=== PATIENT | female | born 1955 | race Caucasian/White ===

== ENCOUNTER → 2017-12-04 | Outpatient (CLI) | payer MEDICAID ==
[2017-12-04 10:28] LABS: Appearance,Urine Cloudy (Clear); Bacteria,Urine Rare /hpf; Bilirubin,Urine 1+ (Negative); Blood,Urine Negative (Negative); Color,Urine Yellow; Glucose,Urine (UA) Negative (Negative); Ketones,Urine 1+ (Negative); Leukocyte Esterase,Urine Negative (Negative); Mucus,Urine Few /hpf; Nitrite,Urine Negative (Negative); PH, Urine 5.5 (5.0-8.0); Protein,Urine 1+ (Negative); RBC,Urine 1 /hpf (0-5); Squamous Epithelial Cell,Urine 13 /hpf (0-4); WBC,Urine 1 /hpf (0-5)
[2017-12-04 10:47] LABS: Basophils # (A) 0.1 k/uL (0-0.2); Basophils % (A) 1 %; Eosinophils # (A) 0.2 k/uL (0-0.7); Eosinophils % (A) 2 %; HCT 42.1 % (34.0-46.0); HGB 14.7 gm/dL (11.4-16.0); Lymphocytes # (A) 2.2 k/uL (1.0-4.8); Lymphocytes % (A) 38 %; MCH 28.8 pg (25.0-35.0); MCHC 34.8 g/dL (31.0-37.0); MCV 82.9 fL (80.0-100.0); Mean Platelet Volume 7.4; Monocytes # (A) 0.3 k/uL (0-1.0); Monocytes % (A) 5 %; Neutrophils # (A) 3.1 k/uL (1.3-7.7); Neutrophils % (A) 52 %; Platelet Count 307 k/uL (150-450); RBC 5.08 m/uL (3.80-5.40); RDW 12.7 % (11.5-15.5); WBC 5.9 k/uL (3.8-10.6)
[2017-12-04 11:50] LABS: ALT 21 U/L (9-52); AST 20 U/L (14-36); Albumin 4.5 g/dL (3.5-5.0); Alkaline Phosphatase 71 U/L (38-126); Anion Gap 12 mmol/L; Blood Urea Nitrogen 28 mg/dL (7-17); C Reactive Protein 9.2 mg/L (<10.0); Calcium 10.3 mg/dL (8.4-10.2); Carbon Dioxide 29 mmol/L (22-30); Chloride 106 mmol/L (98-107); Cholesterol 152 mg/dL (<200); Glucose 106 mg/dL (74-99); HDL Cholesterol 55 mg/dL (40-60); LDL Cholesterol,Calculated 82 mg/dL (0-99); Potassium 4.7 mmol/L (3.5-5.1); Sodium 147 mmol/L (137-145); Total Bilirubin 1.3 mg/dL (0.2-1.3); Total Protein 7.4 g/dL (6.3-8.2); Triglycerides 73 mg/dL (<150)
[2017-12-04 12:58] LABS: Erythrocyte Sedimentation Rate 9 mm/hr (0-20)
[2017-12-04 17:33] LABS: Rheumatoid Factor 6 IU/mL (0-15)
== END ==
LOC: LABWHC1 09:51
PROVIDERS: ATTEND Internal Medicine
DX: Z00.00 Encounter for general adult medical examination without abnormal findings (principal); E78.5 Hyperlipidemia, unspecified; K21.9 Gastro-esophageal reflux disease without esophagitis; M19.90 Unspecified osteoarthritis, unspecified site; M12.9 Arthropathy, unspecified; Z86.711 Personal history of pulmonary embolism
CPT/HCPCS: 36415; 80053; 80061; 81001; 84443; 85025; 85652; 86038; 86140; 86431

== ENCOUNTER → 2017-12-15 | Outpatient (CLI) | payer BC ==
[2017-12-15 14:51] LABS: Anion Gap 12 mmol/L; Blood Urea Nitrogen 32 mg/dL (7-17); Calcium 10.4 mg/dL (8.4-10.2); Carbon Dioxide 26 mmol/L (22-30); Chloride 104 mmol/L (98-107); Glucose 91 mg/dL (74-99); Potassium 4.9 mmol/L (3.5-5.1); Sodium 142 mmol/L (137-145)
--- NOTE | 2017-12-18 09:15 | MM ---
Reason for exam: screening (asymptomatic). Last mammogram was performed 3 years ago. History: Patient is postmenopausal. Family history of breast cancer in grandmother. Physical Findings: A clinical breast exam by your physician is recommended on an annual basis and results should be correlated with mammographic findings. MG 3D Screening Mammo W/Cad Bilateral CC and MLO view(s) were taken. Prior study comparison: December 26, 2014, bilateral MG screening mammo w CAD. May 14, 2012, bilateral digital screening mammo w/CAD. There are scattered fibroglandular densities. Finding: There are typically benign round calcifications in both breasts. There is no discrete abnormality. ASSESSMENT: Benign, BI-RAD 2 RECOMMENDATION: Routine screening mammogram of both breasts in 1 year.
== END | disposition home or self-care (01) ==
LOC: RADMAMWWP 13:55
PROVIDERS: ATTEND Internal Medicine
DX: Z12.31 Encounter for screening mammogram for malignant neoplasm of breast (principal); E83.52 Hypercalcemia
CPT/HCPCS: 77063; 77067; 80048

== ENCOUNTER → 2019-06-28 | Outpatient (CLI) | payer MEDICAID ==
[~2019-06-28] MED LIST: REGADENOSON 0.4 MG/5 ML SYRINGE IV ONE
--- NOTE | 2019-06-28 11:12 | NM ---
EXAMINATION TYPE: NM stress lexiscan cardiolite DATE OF EXAM: 06/28/2019 COMPARISON: NONE HISTORY: Chest pain TECHNIQUE: After the intravenous administration of 10.23 mCi Tc 99m Sestamibi - Cardiolite resting S PECT images acquired 45 minutes post injection. The patient received 0.4mg Lexiscan, 25.4 mCi Tc 99m Sestamibi - Stress images obtained [address] injection FINDINGS: Review of stress and rest SPECT images demonstrates small focal area of reversibility involving the a nterior and apical portion myocardium.. Gated analysis shows normal wall motion with an estimated le ft ventricular ejection fraction of 76 %. IMPRESSION: 1. Small focal area of stress-induced reversibility involving the anterior wall and apical portion of the myocardium. This may be artifactual correlate clinically and with EKG to exclude stress-induced reversible ischemia.
--- NOTE | 2019-06-28 14:56 | EST ---
EXERCISE STRESS AGE: 63 SEX: Female HT: 68" WT: 258# PROTOCOL: Lexiscan Cardiolite STAGE: DURATION OF EXERCISE: HEART RATE REST: 80 BLOOD PRESSURE REST: 115/75 MAXIMUM HEART RATE ACHIEVED: 106 MAXIMUM BLOOD PRESSURE: 125/71 85% MPHR: 133 100% MPHR: 157 METS: INDICATIONS: Preoperative. CLINICAL INFORMATION: Lexiscan nuclear study was performed. Resting heart rate is 80 beats per minute. Peak heart rate of 94 beats per minute was noted. Resting blood pressure is 115/75 mmHg. At the peak Lexiscan infusion, maximum blood pressure of 125/71 mmHg was noted. Resting EKG shows normal sinus rhythm with normal IN interval and QRS duration and normal ST-T waves. No ST-segment depression suggestive of ischemia is noted. The results of the nuclear study will follow. BRUNOL / IJN: [id number] /
== END | disposition home or self-care (01) ==
LOC: RADNMMAIN 07:48
PROVIDERS: ATTEND Internal Medicine
DX: Z01.810 Encounter for preprocedural cardiovascular examination (principal)
CPT/HCPCS: 93017; 78452; A9500; J2785

== ENCOUNTER → 2019-07-01 | Outpatient (CLI) | payer MEDICAID ==
[2019-07-01 18:55] LABS: Vitamin D 25 Hydroxy 30.1 ng/mL (30.0-100.0)
[2019-07-01 19:48] LABS: African American GFR (CKD) 106.9 (60.0-200.0); Albumin 4.4 g/dL (3.80-4.90); Albumin/Globulin Ratio 2.32 (1.60-3.17); Anion Gap 11.3 mmol/L (4.00-12.00); BUN/Creat Ratio 41.43 Ratio (12.00-20.00); Calcium 9.1 mg/dL (8.7-10.3); Carbon Dioxide 23.7 mmol/L (21.6-31.8); Chol/HDL Ratio 2.71; Globulin 1.9 g/dL (1.6-3.3); Potassium 4.6 mmol/L (3.5-5.5); Total Bilirubin 0.9 mg/dL (0.3-1.2); Total Protein 6.3 g/dL (6.2-8.2)
== END | disposition home or self-care (01) ==
LOC: LABWHC1 10:03
PROVIDERS: ATTEND Internal Medicine
DX: Z00.00 Encounter for general adult medical examination without abnormal findings (principal); E78.5 Hyperlipidemia, unspecified; K21.9 Gastro-esophageal reflux disease without esophagitis; M17.11 Unilateral primary osteoarthritis, right knee; E55.9 Vitamin D deficiency, unspecified; E53.8 Deficiency of other specified B group vitamins; Z86.711 Personal history of pulmonary embolism
CPT/HCPCS: 36415; 80053; 80061; 82306; 82607; 84443

== ENCOUNTER → 2019-07-11 | Outpatient (CLI) | payer MEDICAID | END | disposition home or self-care (01) | LOC: LABPAT 16:02 | PROVIDERS: ATTEND Orthopaedic Surgery | DX: Z01.812 Encounter for preprocedural laboratory examination (principal) | CPT/HCPCS: 87070 ==

== ENCOUNTER → 2019-07-25 | Outpatient (CLI) | payer MEDICAID ==
[2019-07-25 11:23] LABS: African American GFR (CKD) >90 (>60 ml/min/1.73 sqM); Anion Gap 6 mmol/L; Blood Urea Nitrogen 27 mg/dL (7-17); Carbon Dioxide 31 mmol/L (22-30); Chloride 103 mmol/L (98-107); Non-African American GFR(CKD) >90 (>60 ml/min/1.73 sqM); Potassium 4.6 mmol/L (3.5-5.1); Sodium 140 mmol/L (137-145)
[2019-07-25 11:33] LABS: HCT 41.6 % (34.0-46.0); HGB 14.3 gm/dL (11.4-16.0); MCHC 34.3 g/dL (31.0-37.0); MCV 87.4 fL (80.0-100.0); Mean Platelet Volume 6.5; Platelet Count 298 k/uL (150-450); RBC 4.76 m/uL (3.80-5.40); RDW 13.1 % (11.5-15.5); WBC 6.3 k/uL (3.8-10.6)
== END | disposition home or self-care (01) ==
LOC: LABPAT 10:05
PROVIDERS: ATTEND Internal Medicine Interventional Cardiology
DX: Z01.812 Encounter for preprocedural laboratory examination (principal); R94.39 Abnormal result of other cardiovascular function study
CPT/HCPCS: 36415; 80051; 82565; 84520; 85027

== ENCOUNTER 2019-07-31 06:29 | Day surgery (SDC) | payer MEDICAID ==
[2019-07-29 12:02] VITALS: BMI 37.7
[2019-07-31] MEDS ORDERED: ALPRAZolam 0.25 MG TAB PO PRN (06:34)
[2019-07-31] MEDS ORDERED: NITROGLYCERIN SL TABS 0.4 MG TAB SUBLINGUAL PRN (06:34)
[2019-07-31] MEDS ORDERED: SODIUM CHLORIDE 0.9% 1,000 ML in EMPTY BAG 1 BAG IV ONE (06:34)
[2019-07-31] MEDS ORDERED: ALPRAZolam 0.5 MG TAB PO PRN (06:34)
[2019-07-31] MEDS ORDERED: ASPIRIN 325 MG TAB PO STA (06:34)
[2019-07-31] MEDS ORDERED: ATORVASTATIN 80 MG TAB PO STA (06:34)
[2019-07-31 07:03] VITALS: TEMP 98
[2019-07-31] MEDS ORDERED: fentaNYL (PF) 50 MCG/ML 2 ML AMP ONE (07:26)
[2019-07-31] MEDS ORDERED: HEPARIN SODIUM 1,000 UN/ML (10ML VL) ONE (07:26)
[2019-07-31] MEDS ORDERED: LIDOCAINE 1% INJ 10MG/ML (20 ML MDV) ONE (07:26)
[2019-07-31] MEDS ORDERED: VERAPAMIL 2.5 MG/ML 2 ML AMP ONE (07:26)
[2019-07-31] MEDS ORDERED: fentaNYL (PF) 50 MCG/ML 2 ML AMP IVP ONE (07:36)
[2019-07-31] MEDS ORDERED: LIDOCAINE 1% INJ 10MG/ML (20 ML MDV) SQ ONE (07:40)
[2019-07-31] MEDS ORDERED: VERAPAMIL SYRINGE (5 MG/10 ML) INTRAARTER ONE (07:45)
[2019-07-31] MEDS ORDERED: HEPARIN SODIUM 1,000 UN/ML (10ML VL) IV ONE (07:50)
[2019-07-31] MEDS ORDERED: IOPAMIDOL-370 125ML BTL INJ ONE (08:02)
[2019-07-31] MEDS ORDERED: RX INFO: IV CONTRAST WAS GIVEN 1 EACH MISC MISCELLANE PRN (08:11)
[2019-07-31] MEDS ORDERED: SODIUM CHLORIDE 0.9% 1,000 ML IV SCH (08:15)
[2019-07-31 08:39] VITALS: RESP 18
[2019-07-31] MEDS ORDERED: CYCLOBENZAPRINE 10 MG TAB PO SCH (09:00)
[2019-07-31] MEDS ORDERED: NON FORMULARY DRUG (Simvastatin [Simvastatin] 40 MG) PO SCH (09:00)
[2019-07-31] MEDS ORDERED: NON FORMULARY DRUG (Omeprazole [Omeprazole] 20 MG) PO SCH (09:00)
[2019-07-31] MEDS ORDERED: NON FORMULARY DRUG (Cyanocobalamin (Vitamin B-12) [Vitamin B-12] 1,000 MCG) PO SCH (09:00)
[2019-07-31 09:02] VITALS: BP 144/94; PULSE 76
--- NOTE | 2019-07-31 09:08 | CC ---
CARDIAC CATHETERIZATION REPORT Mrs. Lunsford is a 63-year-old female known with known history of hyperlipidemia, who presented with symptoms of chest discomfort. She was scheduled to undergo a total knee arthroplasty and underwent a myocardial perfusion imaging that revealed evidence of inducible ischemia involving the anterior wall. In view of that, recommendation was made regarding cardiac catheterization. The procedure as well as the risks and the complications were discussed with the patient who is in full understanding and agreement. PROCEDURE: Patient was brought to the laborer tan house in a fasting semi-sedated state after receiving fentanyl and Benadryl and achieving moderate conscious sedated state. Using Xylocaine anesthesia and Seldinger technique, a 6-Swazi sheath was introduced in the right radial artery. Selective right and left coronary angiography was performed using 5- Swazi 3.5 bend right and left Norah catheter. Multiple views of the coronary artery including hemiaxial views were obtained. Following that, 5-Swazi tight pigtail catheter was introduced in the left ventricle and a 30-degree STOVER view of the left ventricle was obtained. Following that, catheter and sheath were removed. Hemostasis was obtained with deployment of a TR band. There was no immediate complication. Patient was returned to her room in stable condition. Of note, the patient received 5000 units of intravenous heparin as well as intra-arterial verapamil. FINDINGS: LEFT MAIN: This is a short size vessel bifurcating left circumflex, left anterior descending artery. Left main coronary artery has no evidence of high-grade stenosis. LEFT ANTERIOR DESCENDING ARTERY: This is a large sized vessel reaching toward the apex with a wraparound apex segment giving rise to a moderately sized diagonal branch in mid segment. The left anterior descending artery as well as branches have no evidence of obstructive coronary artery disease. LEFT CIRCUMFLEX: This is a nondominant vessel, large in caliber, giving rise to a large obtuse marginal branch. The left circumflex as well as branches have no evidence of obstructive coronary artery disease. RIGHT CORONARY ARTERY: This is a large dominant vessel bifurcating in PDA and posterolateral segment and branches the PLV reaches to the inferoapical lateral wall. The right coronary artery as well as branches have no evidence of obstructive coronary artery disease. LEFT VENTRICULOGRAM: Left ventriculogram was performed in 30-degree STOVER view and revealed normal left ventricular size and systolic function. Ejection fraction is 60%. There was no significant mitral regurgitation. HEMODYNAMICS: There was no gradient across the aortic valve. The left ventricular end- diastolic pressure was 20 mmHg. CONCLUSION: 1. Normal coronary arteries. 2. Normal left ventricular size and systolic function. RECOMMENDATION: In view of finding anatomy, recommend to continue medical therapy with aggressive coronary risk modifications that have been initiated. Those findings and recommendation were discussed with the patient and her family and in full understanding and agreement. Duration of procedure is 21 minutes. LIEN / TRAMN: [id number] /
--- NOTE | 2019-07-31 09:14 | LTR ---
July 31, 2019 Re: Anna Lunsford Dear Dr. Alanis: I had the opportunity to perform cardiac catheterization on Mrs. Lunsford at [facility] on the 31 of July and a full copy of the procedure note will be forwarded to you. In brief, she was found to have no evidence of obstructive coronary artery disease with preserved left ventricular size and systolic function. Based on those findings, I recommended to continue medical therapy with aggressive coronary risks modifications that has been initiated. Thank you again for allowing me the opportunity to participate in her care. Please feel free to call for any questions. Sincerely yours, MD BRUNO CampbellL / TRAMN: [id number] /
== END 2019-07-31 13:05 | disposition home or self-care (01) ==
LOC: CATHCVL 06:29
PROVIDERS: ATTEND Internal Medicine Interventional Cardiology
DX: R94.39 Abnormal result of other cardiovascular function study (principal); I10 Essential (primary) hypertension; E78.5 Hyperlipidemia, unspecified; Z82.49 Family history of ischemic heart disease and other diseases of the circulatory system; Z86.718 Personal history of other venous thrombosis and embolism; Z86.711 Personal history of pulmonary embolism; Z79.01 Long term (current) use of anticoagulants; Z79.82 Long term (current) use of aspirin; Z79.899 Other long term (current) drug therapy; Z88.1 Allergy status to other antibiotic agents; Z88.5 Allergy status to narcotic agent; Z88.8 Allergy status to other drugs, medicaments and biological substances
CPT/HCPCS: 93458; C1769; J2001; J3010; J1644; Q9967

== ENCOUNTER → 2019-08-15 | Outpatient (CLI) | payer MEDICAID ==
[2019-08-15 08:32] LABS: Basophils # (A) 0.1 k/uL (0-0.2); Basophils % (A) 1 %; Eosinophils # (A) 0.3 k/uL (0-0.7); Eosinophils % (A) 5 %; HCT 38.9 % (34.0-46.0); HGB 12.9 gm/dL (11.4-16.0); Lymphocytes # (A) 2.4 k/uL (1.0-4.8); Lymphocytes % (A) 40 %; MCH 29.1 pg (25.0-35.0); MCHC 33.2 g/dL (31.0-37.0); MCV 87.5 fL (80.0-100.0); Mean Platelet Volume 6.3; Monocytes # (A) 0.3 k/uL (0-1.0); Monocytes % (A) 4 %; Neutrophils % (A) 49 %; Platelet Count 313 k/uL (150-450); RBC 4.45 m/uL (3.80-5.40); RDW 12.9 % (11.5-15.5)
[2019-08-15 08:49] LABS: Potassium 4.7 mmol/L (3.5-5.1)
[2019-08-15 09:56] LABS: INR 0.9 (<1.2); Prothrombin Time 9.6 sec (9.0-12.0)
== END | disposition home or self-care (01) ==
LOC: LABPAT 08:02
PROVIDERS: ATTEND Orthopaedic Surgery
DX: Z01.812 Encounter for preprocedural laboratory examination (principal); M17.11 Unilateral primary osteoarthritis, right knee; Z51.81 Encounter for therapeutic drug level monitoring
CPT/HCPCS: 36415; 80051; 85025; 85610

== ENCOUNTER 2019-09-09 05:57 | Inpatient (IN) | payer MEDICAID ==
[2019-09-05 12:52] VITALS: BMI 39.2
--- NOTE | 2019-09-08 16:20 | HP ---
HISTORY AND PHYSICAL REASON FOR ADMISSION: Surgery 09/09/2019 HISTORY OF PRESENT ILLNESS: Anna Lunsford is a 64-year-old patient seen with symptomatic right knee osteoarthritis. We discussed options for treatment. She elected to proceed with right total knee arthroplasty. Consent was obtained. Medical clearance was provided by Tracy Escalante. Cardiac clearance was provided by Dr. Perea. PAST MEDICAL HISTORY: Hyperlipidemia, gastroesophageal reflux disease. PAST SURGICAL HISTORY: Left foot surgery, hysterectomy, right knee arthroscopy. MEDS: Flexeril, omeprazole, simvastatin. ALLERGIES: TETRACYCLINES, ERYTHROMYCIN, MORPHINE, BENADRYL. SOCIAL HISTORY: Noncontributory. PHYSICAL EXAMINATION: Evaluation of the right knee: Range of motion is -3/4-115. Tenderness medial joint line. Crepitus medial patellofemoral compartments with range of motion. Pain with patellofemoral compression. Ligaments are stable. Hip rotation without pain. Distal neurovascular exam is intact. RADIOGRAPHS: Radiographs of the right knee reveal severe osteoarthritic changes. IMPRESSION: 1. Right knee osteoarthritis. 2. Hyperlipidemia. 3. Gastroesophageal reflux disease. PLAN: Right total knee arthroplasty. Surgery 09/09/2019. MMODL / IJN: [id number] /
[~2019-09-09 05:57] MED LIST changes: +ACETAMINOPHEN TAB 500 MG TAB PO ONE; +LIDOCAINE 1% 20 ML VIAL (10MG/ML) FOR IV START INTRADERMA PRN; +MELOXICAM 7.5 MG TAB PO ONE; +ONDANSETRON 4 MG/2 ML VIAL IVP ONE; -REGADENOSON 0.4 MG/5 ML SYRINGE IV ONE; +TRANEXAMIC ACID 1,000 MG in SODIUM CHLORIDE 0.9% 100 ML IVPB ONE; +fentaNYL (PF) 50 MCG/ML 2 ML AMP IV PRN
[2019-09-09] MEDS ORDERED: ROPIVACAINE 246.25 MG, EPINEPHrine 0.5 MG, KETOROLAC 30 MG, cloNIDine HCL/PF 80 MCG, WA... MISCELLANE ONE ×5 (06:00)
[2019-09-09] MEDS: LACTATED RINGERS 1,000 ML IV SCH ×3 (06:30→21:52)
[2019-09-09] MEDS ORDERED: DEXAMETHASONE SOD PHOSPHATE 10 MG/ML 1 ML VIAL IV ONE (06:30)
[2019-09-09] MEDS ORDERED: MIDAZOLAM 2 MG/2 ML VIAL IV ONE ×2 (07:10→07:30)
[2019-09-09] MEDS ORDERED: SODIUM CHLORIDE 0.9% 100 ML BAG ONE (07:29)
[2019-09-09] MEDS ORDERED: PHENYLEPHRINE-0.9% NACL SYG 1 MG/10 ML SYRINGE ONE (07:29)
[2019-09-09] MEDS ORDERED: TRANEXAMIC ACID 1,000 MG/10 ML VIAL ONE (07:29)
[2019-09-09] MEDS ORDERED: PROPOFOL 10 MG/ML 20 ML VIAL IV ONE (07:29)
[2019-09-09] MEDS ORDERED: MIDAZOLAM 2 MG/2 ML VIAL ONE (07:29)
[2019-09-09] MEDS ORDERED: fentaNYL (PF) 50 MCG/ML 2 ML AMP ONE (07:29)
[2019-09-09] MEDS ORDERED: ROPIVACAINE 0.2%-NS ON-Q PUMP 1,090 MG, EMPTY PAIN BALL 1 EACH MISCELLANE PRN (08:04)
--- NOTE | 2019-09-09 08:04 | P.ANPRN ---
Procedure Note - Anesthesia - Nerve Block Performed Left Adductor Canal Infusion Time Out Performed: Yes Date of Procedure: 09/09/19 Procedure Start Time: :10 Procedure Stop Time: :21 Location of Patient: PreOp Indication: Acute Post-Operative Pain, Requested by Surgeon Specifically requested for management of pain by DrRashad: Gus Moore Sedation Type: Sedate with meaningful contact maintained Preparation: Sterile Prep Position: Supine Catheter: Indwelling Needle Types: Pajunk Needle Gauge: 18 Ultrasound used to visualize needle placement: Yes Ultrasound used to observe medication spread: Yes Injectate: 0.5% Ropivacaine (see comment for volume) (20 cc) Blood Aspirated: No Pain Paresthesia on Injection Noted: No Resistance on Injection: Normal Image Stored and Saved: Yes Events: Uneventful and Well Tolerated
[2019-09-09] MEDS ORDERED: ceFAZolin 3,000 MG in SODIUM CHLORIDE 0.9% IRRIGATIO 3,000 ML IRRIGATION ONE (08:07)
[2019-09-09] MEDS ORDERED: LACTATED RINGERS 1,000 ML IV ONE (08:10)
[2019-09-09] MEDS ORDERED: NALOXONE 0.4 MG/ML 1 ML VIAL IV PRN (09:26)
[2019-09-09] MEDS ORDERED: HYDROmorphone 1 MG/ML 1 ML SYRINGE IVP PRN (09:26)
[2019-09-09] MEDS ORDERED: HYDROmorphone 0.5 MG/0.5 ML SYRINGE IVP PRN ×2 (09:26)
[2019-09-09] MEDS ORDERED: ONDANSETRON 4 MG/2 ML VIAL IVP PRN (09:26)
[2019-09-09] MEDS ORDERED: HYDROcodone/APAP 5-325MG 1 EACH TAB PO PRN (09:26)
--- NOTE | 2019-09-09 09:26 | P.OP ---
Date of Procedure: 09/09/19 Preoperative Diagnosis: Right knee osteoarthritis Postoperative Diagnosis: Right knee osteoarthritis Procedure(s) Performed: Right total knee arthroplasty Implants: 1. Microport evolution size 5 right cemented femur 2. Microport evolution size 5 right cemented tibial baseplate 3. Microport evolution size 5 right CS 12 mm polyethylene tibial insert 4. Microport advance 35 mm all polyethylene cemented patella Anesthesia: regional (Adductor canal catheter), local, spinal Surgeon: Gus Moore Camera Supervisor #1: Vignesh Berger Estimated Blood Loss (ml): 40 Pathology: other (Bone) Condition: stable Disposition: PACU Indications for Procedure: 64-year-old patient seen with symptomatic right knee osteoarthritis. After treatment options were discussed, she elected to proceed with total knee arthroplasty. Operative Findings: See description of procedure Description of Procedure: Patient was taken to the operative suite after having an adductor canal catheter placed by the department of anesthesia for postoperative pain management. Patient underwent a spinal anesthetic by the department of anesthesia. Patient was given preoperative IV intake antibiotics and TXA. A well-padded tourniquet was placed about the right lower extremity. The lower extremity was then prepped and draped in the normal sterile orthopedic fashion. The extremity was elevated, a tourniquet was insufflated to 300. A standard anterior incision was made sharply through skin. Dissection was taken down through the subcutaneous soft tissues down to the extensor mechanism. A medial arthrotomy was performed, patella was everted and knee was flexed. There was advanced osteoarthritis noted. I introduced my distal intramedullary femoral drill. I then introduced the distal femoral cutting jig. Roel WILLIAMSON secured the cutting jig with 2 pins. I held retractors in position while Roel WILLIAMSON performed the distal femoral resection through the guide area we now removed her distal femoral cutting guide. We now placed our 4-in-1 femoral cutting block and positioned and it was secured with 2 pins by Roel WILLIAMSON while I held the block in position. The distal femoral finishing was now completed. A proximal tibial cutting guide was positioned. I held the guide in the appropriate position with both hands well Roel WILLIAMSON inserted stabilizing pins into the guide. Proximal tibial cut was made. We now placed a trial femoral component into position, along with an appropriate size tibial tray and insert. We now took the knee through range of motion and had full extension good flexion and good overall soft tissue balance noted. The patella was everted and stabilized with 2 towel clips held by Roel WILLIAMSON while I performed a flush with patellar quad tendon utilizing a fresh sawblade. We templated the patella, appropriate drill holes were made. An appropriate trial patella was positioned, knee was taken through full range of motion with the patella tracking very nicely. The trial patella was removed. Drill holes were made through the femoral component. All trial components were removed after marking off the appropriate rotation of the tibia. Retractors were now positioned along the proximal tibia. An appropriate keel punch was made with the appropriate size tibial guide by myself on Roel WILLIAMSON assisted by holding retractors. At this point appropriate size implants were chosen and opened. The joint was irrigated copiously with pulse lavage mechanical irrigation. The posterior capsule was infiltrated with local analgesic. The wound was irrigated with pulse lavage mechanical irrigation. We mixed antibiotic methylmethacrylate. We placed the knee into flexion. We placed multiple retractors assisted by Roel WILLIAMSON to expose the proximal tibia. Once the methyl methacrylate was ready, the tibial component was cemented into place removing any excess methylmethacrylate form by both myself and Roel WILLIAMSON. The femoral component was cemented into place removing the removing any excess methylmethacrylate performed by both myself and Roel WILLIAMSON. We then inserted the appropriate size polyethylene tibial insert. We made sure that it was locked into position. We took the knee into full extension, and then back in a flexion making sure we had removed any excess methylmethacrylate. The patellar component was then cemented down and secured with clamp. Excess methylmethacrylate removed. We kept the knee in full extension, patellar clamp in position until methylmethacrylate had hardened. Once it had hardened the patellar clamp was removed. The knee was taken through full range of motion. The patella tracked nicely. There was good soft tissue balancing. The tourniquet was now released. Additional hemostasis was achieved via electrocautery. A second gram of TXA was given. The wound again was irrigated with pulse lavage mechanical irrigation. The superficial soft tissues were infiltrated local analgesic. The extensor mechanism was repaired with Vicryl. We checked the repair with range of motion and it was stable. The subcutaneous soft tissues were repaired with Vicryl in layers. The skin was approximated with pernio/Dermabond. Sterile dressings were applied followed by loose web roll and Galo bandage. The patient was transferred to a bed, and taken to recovery in stable and satisfactory condition. Roel WILLIAMSON assisted with this complex procedure.
[2019-09-09] MEDS: HYDROmorphone 1 MG/ML 1 ML SYRINGE IVP ONE ×2 (10:10→10:15)
--- NOTE | 2019-09-09 10:12 | XR ---
EXAMINATION TYPE: XR knee limited RT DATE OF EXAM: 09/09/2019 CLINICAL HISTORY: Right knee pain and arthritis status post total knee replacement. TECHNIQUE: Portable AP and crosstable lateral views of the right knee are obtained immediately posto peratively. COMPARISON: None FINDINGS: Metallic hardware from total right knee arthroplasty is seen and appears satisfactory in a lignment and position. There is evidence of recent surgery with diffuse subcutaneous gas and soft ti ssue swelling noted. IMPRESSION: METALLIC HARDWARE FROM TOTAL RIGHT KNEE ARTHROPLASTY IS SATISFACTORY IN ALIGNMENT.
[2019-09-09] MEDS: HYDROcodone/APAP 5-325MG 1 EACH TAB PO PRN ×2 (12:58→20:23)
--- NOTE | 2019-09-09 18:53 | P.CONS ---
History of Present Illness - Reason for Consult Consult date: 09/09/19 consult for medical management of GERD and hyperlipidemia Requesting physician: Gus Moore - Chief Complaint consult for medical management of GERD and hyperlipidemia - History of Present Illness The patient is a morbidly obese female with past focal history of GERD and dyslipidemia who is currently admitted and is postop after having a right total knee arthroplasty secondary to history of severe right knee osteoarthritis. the patient denies any chest pain or shortness of breath or nausea or vomiting. Reports pain is well controlled at this time. Review of records indicates that the patient had an abnormal stress test and subsequent normal left heart catheterization in July of this year Review of Systems pertinent positives as per HPI all other review of systems is otherwise negative Past Medical History Past Medical History: Deep Vein Thrombosis (DVT), Osteoarthritis (OA) Additional Past Medical History / Comment(s): Hx DVT in right leg, bilateral PE in 2004 after right knee arthroscopy. History of Any Multi-Drug Resistant Organisms: None Reported Past Surgical History: Heart Catheterization, Hysterectomy, Orthopedic Surgery Additional Past Surgical History / Comment(s): Right knee arthroscopy, bunion surgery bilateral feet, recent heart cath jul 31, TRK aug 2019 Past Anesthesia/Blood Transfusion Reactions: No Reported Reaction Past Psychological History: No Psychological Hx Reported Smoking Status: Never smoker Past Alcohol Use History: None Reported Past Drug Use History: None Reported - Past Family History Sister(s) Family Medical History: Cancer Additional Family Medical History / Comment(s): Tongue cancer. Medications and Allergies Home Medications Medication Instructions Recorded Confirmed Type Cyanocobalamin (Vitamin B-12) 1,000 mcg PO DAILY 07/29/19 09/05/19 History [Vitamin B-12] Cyclobenzaprine [Flexeril] 10 mg PO TID 07/29/19 09/05/19 History Ibuprofen 800 mg PO TID 07/29/19 09/05/19 History Omeprazole 20 mg PO DAILY 07/29/19 09/05/19 History Simvastatin 40 mg PO DAILY 07/29/19 09/05/19 History Allergies Allergy/AdvReac Type Severity Reaction Status Date / Time azithromycin Allergy Rash/Hives Verified 09/09/19 11:18 diphenhydramine Allergy Rash/Hives Verified 09/09/19 11:18 [From Benadryl] morphine Allergy Swelling Verified 09/09/19 11:18 Tetracyclines Allergy Rash/Hives Verified 09/09/19 11:18 Physical Exam Vitals: Vital Signs Temp Pulse Pulse Pulse Resp BP Pulse Ox 09/09/19 13:11 94 106/72 96 09/09/19 12:57 95 113/65 96 09/09/19 12:41 93 130/81 96 09/09/19 12:26 87 112/77 97 09/09/19 12:11 88 117/80 96 09/09/19 11:56 88 111/78 96 09/09/19 11:42 90 117/74 98 09/09/19 11:26 91 122/81 95 09/09/19 11:11 97.9 F 93 18 107/72 95 09/09/19 10:31 94 18 133/71 95 09/09/19 10:16 94 18 130/74 93 L 09/09/19 10:01 94 18 127/65 95 09/09/19 09:46 96 18 117/61 97 09/09/19 09:35 97.1 F L 96 14 119/64 97 09/09/19 06:30 97.0 F L 110 H 16 148/79 97 Intake and Output 09/08/19 09/09/19 09/09/19 22:59 06:59 14:59 Intake Total 300 1351 Output Total 40 Balance 300 1311 Intake: IV 300 1251 Oral 100 Output: Estimated Blood Loss 40 Other: Weight 117 kg 117 kg Constitutional: No acute distress, conversant, pleasant Eyes: Anicteric sclerae, moist conjunctiva, no lid-lag, PERRLA ENMT: NC/AT,Oropharynx clear, no erythema, exudates Neck:Supple, FROM, no masses, or JVD, No carotid bruits; No thyromegaly Lungs: Clear to auscultation, Clear to percussion, Normal respiratory effort, no accessory muscle use Cardiovascular: Heart regular in rate and rhythm, No murmurs, gallops, or rubs no peripheral edema Abdominal: Soft Nontender, nom distended, no guarding, no rebound or rigidity, Normoactive bowel sounds No hepatomegaly, No splenomegaly, No palpable mass No abdominal wall hernia noted Skin: Normal temperature, tone, texture, turgor, No induration No subcutaneous nodules, No rash, lesions, No ulcers Extremities:No digital cyanosis No clubbing, Pedal pulses intact and symmetrical Radial pulses intact and symmetrical Normal gait and station, No calf tenderness Psychiatric: Alert and oriented to person, place and time, Appropriate affect Intact judgement Neuro: Muscles Strength 5/5 in all 4 extremities, Sensation to light touch grossly present throughout, Cranial nerves II-XII grossly intact. No focal sensory deficits Assessment and Plan Assessment: GERD Dyslipidemia Morbid obesity Status post knee arthroplasty the patient is admitted to the primary orthopedic service after having a right total kneearthroplasty will defer to the primary orthopedic service for ongoing analgesic therapy. The patient does have aleft adductor canal infusion nerve block. agree with continuing perioperative antibiotics with cefazolin. the patient is hemodynamically stable and is resumed on her home medications for acid reflux and dyslipidemia. We'll continue to follow her clinical course. At the patient presents to rehab at home initially. CODE STATUS full code
[2019-09-09] MEDS: SENNOSIDES-DOCUSATE SODIUM 1 EACH TAB PO SCH (20:23)
[2019-09-09] MEDS ORDERED: METOCLOPRAMIDE 5 MG/ML 2 ML VIAL IVP PRN (20:59)
[2019-09-09] MEDS: ENOXAPARIN 30 MG/0.3 ML SYRINGE SQ SCH (22:05)
[2019-09-10] MEDS: HYDROcodone/APAP 5-325MG 1 EACH TAB PO PRN ×4 (01:23→23:23)
[2019-09-10] MEDS: LACTATED RINGERS 1,000 ML IV SCH ×3 (04:42→16:30)
[2019-09-10 07:22] LABS: Basophils % (A) 0 %; Eosinophils % (A) 0 %; HCT 34.8 % (34.0-46.0); HGB 11.8 gm/dL (11.4-16.0); Lymphocytes # (A) 1.5 k/uL (1.0-4.8); Lymphocytes % (A) 18 %; MCH 29.9 pg (25.0-35.0); MCHC 33.8 g/dL (31.0-37.0); MCV 88.3 fL (80.0-100.0); Mean Platelet Volume 7.7; Monocytes # (A) 0.6 k/uL (0-1.0); Monocytes % (A) 7 %; Neutrophils # (A) 6.1 k/uL (1.3-7.7); Neutrophils % (A) 73 %; Platelet Count 236 k/uL (150-450); RBC 3.94 m/uL (3.80-5.40); RDW 12.7 % (11.5-15.5); WBC 8.3 k/uL (3.8-10.6)
[2019-09-10] MEDS: CYANOCOBALAMIN 500 MCG TAB PO SCH (08:30)
[2019-09-10] MEDS: ATORVASTATIN 20 MG TAB PO SCH (08:31)
[2019-09-10] MEDS: PANTOPRAZOLE 40 MG TABLET PO SCH (08:31)
[2019-09-10] MEDS: ENOXAPARIN 30 MG/0.3 ML SYRINGE SQ SCH ×2 (08:31→21:06)
[2019-09-10] MEDS: MELOXICAM 7.5 MG TAB PO SCH (08:31)
[2019-09-10] MEDS: traMADol 50 MG TAB PO PRN ×2 (11:46→21:12)
--- NOTE | 2019-09-10 12:18 | P.PN ---
Progress Note - Text Anesthesia POD1. Patient is status post vaginal hysterectomy under spinal anesthesia with intra-thecal preservative free morphine 300 g. minimal pruritus, excellent post-op analgesia, and no headache or other complications.
--- NOTE | 2019-09-10 12:20 | P.PN ---
Progress Note - Text Anesthesia POD1. Patient is status post left TKR under spinal anesthesia with a left adductor canal catheter placed for postoperative pain relief. With ropivacaine 0.2% running at 8 cc's per hour, the patient's VAS is (0, 2). Catheter site is clean dry and intact.
--- NOTE | 2019-09-10 13:22 | P.PN ---
Subjective Progress Note Date: 09/10/19 Principal diagnosis: status post right total knee arthroplasty patient evaluated at bedside today, she is doing fairly well. She's having a hard time with pain at this time. Dilaudid makes her very drowsy, we will add tramadol between the [place] doses. She's ambulated well with therapy. Objective - Vital Signs Vital signs: Vital Signs Temp 98 F 09/10/19 07:00 Pulse 82 09/10/19 07:00 Resp 12 09/10/19 08:00 BP 129/77 09/10/19 07:00 Pulse Ox 98 09/10/19 07:00 Intake & Output 09/09/19 09/10/19 09/10/19 18:59 06:59 18:59 Intake Total 1891 1100 Output Total 40 Balance 1851 1100 Weight 117 kg Intake: IV 1251 Intake, IV Titration 1100 Amount Lactated Ringers 1,000 ml 1050 @ 100 mls/hr IV .Q10H MARYANNE Rx#:[id number] ceFAZolin 2 gm In Sodium 50 Chloride 0.9% 50 ml @ 100 mls/hr IVPB Q8H MARYANNE Rx#: [id number] Oral 640 Output: Estimated Blood Loss 40 Other: Voiding Method Toilet Toilet # Voids 1 1 - Exam right lower extremity: Incision is clean, dry, and intact. The exofin fusion tape is in good condition. There is minimal soft tissue swelling and ecchymosis surrounding the medial and lateral aspects of the incision. Calf is soft, no tenderness with palpation. Plantar flexion, dorsiflexion, EHL, FHL are intact. Sensory exam to light touch throughout the extremity is intact, dorsal pedis pulses 2+. - Labs CBC & Chem 7: 09/10/19 06:59 Assessment and Plan Plan: assessment: Postoperative day #1 status post right total knee arthroplasty Plan: Pain control, will add tramadol at this time, okay to use IV Dilaudid as needed if she can tolerate nausea GI and DVT prophylaxis, continue current medication Encourage incentive spirometer Medical recommendations Continue her physical therapy Ice and elevate Plan for discharge home tomorrow Time with Patient: Less than 30
--- NOTE | 2019-09-10 18:54 | P.PN ---
Subjective Progress Note Date: 09/11/19 Patient seen and examined at bedside difficulty controlling her pain today, Dilaudid making her drowsy. Ambulated well with therapy, no acute events overnight Objective - Vital Signs Vital signs: Vital Signs Temp 98.1 F 09/10/19 15:00 Pulse 93 09/10/19 15:00 Resp 12 09/10/19 15:00 BP 133/80 09/10/19 15:00 Pulse Ox 97 09/10/19 15:00 Intake & Output 09/09/19 09/10/19 09/10/19 18:59 06:59 18:59 Intake Total 1891 1100 Output Total 40 Balance 1851 1100 Weight 117 kg Intake: IV 1251 Intake, IV Titration 1100 Amount Lactated Ringers 1,000 ml 1050 @ 100 mls/hr IV .Q10H MARYANNE Rx#:[id number] ceFAZolin 2 gm In Sodium 50 Chloride 0.9% 50 ml @ 100 mls/hr IVPB Q8H MARYANNE Rx#: [id number] Oral 640 Output: Estimated Blood Loss 40 Other: Voiding Method Toilet Toilet # Voids 1 1 2 - Exam Constitutional: No acute distress, conversant, pleasant Eyes: Anicteric sclerae, moist conjunctiva, no lid-lag, PERRLA ENMT: NC/AT,Oropharynx clear, no erythema, exudates Neck:Supple, FROM, no masses, or JVD, No carotid bruits; No thyromegaly Lungs: Clear to auscultation, Clear to percussion, Normal respiratory effort, no accessory muscle use Cardiovascular: Heart regular in rate and rhythm, No murmurs, gallops, or rubs no peripheral edema Abdominal: Soft Nontender, nom distended, no guarding, no rebound or rigidity, Normoactive bowel sounds No hepatomegaly, No splenomegaly, No palpable mass No abdominal wall hernia noted Skin: Normal temperature, tone, texture, turgor, No induration No subcutaneous nodules, No rash, lesions, No ulcers, incision clean dry and intact with minimal soft tissue swelling surrounding incision site Extremities:EHL FHL plantar and dorsiflexion intact, symmetrical Radial pulses intact and symmetrical Normal gait and station, No calf tenderness Psychiatric: Alert and oriented to person, place and time, Appropriate affect Intact judgement Neuro: Muscles Strength 5/5 in all 4 extremities, Sensation to light touch gr ossly present throughout, Cranial nerves II-XII grossly intact. No focal sensory deficits - Labs CBC & Chem 7: 09/10/19 06:59 Assessment and Plan Assessment: GERD * continue PPI therapy Dyslipidemia * continue statin therapy Morbid obesity Status post knee arthroplasty * Patient having difficulty with pain today worked well with physical therapy * Continues to have adductor canal infusion with ropivacaine * defer to primary analgesic therapy
[2019-09-10] MEDS: SENNOSIDES-DOCUSATE SODIUM 1 EACH TAB PO SCH (21:06)
[2019-09-11 08:00] VITALS: BP 113/71; PULSE 101; RESP 12; TEMP 98.2
[2019-09-11] MEDS: MELOXICAM 7.5 MG TAB PO SCH (08:19)
[2019-09-11] MEDS: ATORVASTATIN 20 MG TAB PO SCH (08:19)
[2019-09-11] MEDS: PANTOPRAZOLE 40 MG TABLET PO SCH (08:19)
[2019-09-11] MEDS: HYDROcodone/APAP 5-325MG 1 EACH TAB PO PRN ×2 (08:19→13:07)
[2019-09-11] MEDS: ENOXAPARIN 30 MG/0.3 ML SYRINGE SQ SCH (08:20)
[2019-09-11] MEDS: CYANOCOBALAMIN 500 MCG TAB PO SCH (08:20)
[2019-09-11] MEDS: LACTATED RINGERS 1,000 ML IV SCH ×2 (08:23)
[2019-09-11] MEDS: traMADol 50 MG TAB PO PRN (09:06)
--- NOTE | 2019-09-11 10:28 | P.PN ---
Subjective Progress Note Date: 09/11/19 Principal diagnosis: status post right total knee arthroplasty patient evaluated at bedside today, she is doing fairly well. pain is better controlled today. She's ambulated well with therapy. Objective - Vital Signs Vital signs: Vital Signs Temp 98.2 F 09/11/19 07:00 Pulse 101 H 09/11/19 07:00 Resp 12 09/11/19 08:10 BP 113/71 09/11/19 07:00 Pulse Ox 94 L 09/11/19 07:00 Intake & Output 09/10/19 09/11/19 09/11/19 18:59 06:59 18:59 Other: Voiding Method Toilet Toilet # Voids 2 - Exam right lower extremity: Incision is clean, dry, and intact. The exofin fusion tape is in good condition. There is minimal soft tissue swelling and ecchymosis surrounding the medial and lateral aspects of the incision. Calf is soft, no tenderness with palpation. Plantar flexion, dorsiflexion, EHL, FHL are intact. Sensory exam to light touch throughout the extremity is intact, dorsal pedis pulses 2+. - Labs CBC & Chem 7: 09/10/19 06:59 Assessment and Plan Plan: assessment: Postoperative day #2 status post right total knee arthroplasty Plan: Pain control, [place] and tramadol discharge GI and DVT prophylaxis, Eliquis 2.5mg bid Encourage incentive spirometer Medical recommendations Continue her physical therapy Ice and elevate Plan for discharge home today Time with Patient: Less than 30
--- NOTE | 2019-09-11 10:31 | P.DS ---
Providers Date of admission: 09/09/2019 Expected date of discharge: 09/11/19 Attending physician: Gus Moore Consults: 09/09/19 09:26 Consult Physician Routine Consulting Provider: Mariah Alanis Consult Reason/Comments: Medical management Do you want consulting provider notified?: Yes Primary care physician: Mariah Alanis [facility] Course: Date of admission: 09/09/2019 Date of discharge: 09/11/2019 Admission diagnosis: status post right total knee arthroplasty Discharge diagnosis: same Attending physician: Dr. Moore Surgical procedures: right total knee arthroplasty Brief history: Patient is a 64-year-old female with a history of progressive primary right knee osteoarthritis. At this point patient has failed conservative treatment measures and has opted to proceed with a elective right total knee arthroplasty. Hospital course: Details of patient's surgery can be found in operative report. Patient tolerated the procedure well and was subsequently transported to orthopedic floor. Patient's orthopeidc and medical care was provided daily. Patient had daily laboratory tests performed for evaluation of overall blood counts. Patient had daily physical therapy to include strengthening range of motion as well as education with walker ambulation. Patient had daily CPM usage as part of their physical therapy program. Patient was treated with Xarelto for their postoperative DVT prophylaxis during their inpatient stay. Patient was noted to have a relatively uneventful postoperative course. Patient reported satisfactory pain control with oral pain medications by postoperative day 0. Patient showed satisfactory progress with physical therapy. Patient moved steadily through the program and had no difficulty meeting the goals by postop erative day 2. Given patient's otherwise satisfactory course and having met physical therapy goals, plan is to discharge patient home on postoperative day 2. Discharge condition/disposition: Patient will be discharged home in stable condition. Discharge medications: Instructions are given on resumption of patient's normal daily medications per primary care recommendation, in addition patient will be prescribed [place] 7.5 mg/325 mg, tramadol 50 mg, Colace 100 mg, Eliquis 2.5mg. Discharge instructions: 1. Wound care and infection precautions, keep incision dry and covered while showering, no lotions, creams, moisturizers. No soaking, tubs, pools, hottubs. Do not scrub over the incision. 2. Weight-bear as tolerated with walker / cane until follow-up. 3. Ice and elevate when necessary. Do not exceed 20 minutes per hour with ice pack. 4. Utilize compression sleeve until seen at first follow up appointment. 5. Visiting nursing care. 6. Home physical therapy including home CPM. 7. Pain meds and anticoagulants per prescription. 8. Pain medication has potential to cause constipation. Increase oral fluid and fiber intake. Contact primary care provider if you have not had a bowel movement within 48 hours after discharge 9. No anti-inflammatory medication until discussed at first post operative visit, this including Motrin, Aleve, Mobic, Diclofenac 10. Follow up in office at 2 weeks postop with Roel Berger PA-C 11. Follow up with your primary care doctor 7-10 days after discharge. 12. Contact [facility] with any questions, . Procedures: right total knee arthroplasty Patient Condition at Discharge: Good Plan - Discharge Summary Discharge Rx Participant: Yes New Discharge Prescriptions: New Docusate [Colace] 100 mg PO DAILY #30 capsule Apixaban [Eliquis] 2.5 mg PO BID #60 tab HYDROcodone/APAP 7.5-325MG [[place] 7.5] 1 - 2 each PO Q6HR PRN #56 tab PRN Reason: Pain traMADol HCl [Ultram] 50 mg PO Q6H PRN #28 tab PRN Reason: Pain No Action Cyclobenzaprine [Flexeril] 10 mg PO TID Simvastatin 40 mg PO DAILY Omeprazole 20 mg PO DAILY Ibuprofen 800 mg PO TID Cyanocobalamin (Vitamin B-12) [Vitamin B-12] 1,000 mcg PO DAILY Discharge Medication List Cyanocobalamin (Vitamin B-12) [Vitamin B-12] 1,000 mcg PO DAILY 07/29/19 [History] Cyclobenzaprine [Flexeril] 10 mg PO TID 07/29/19 [History] Ibuprofen 800 mg PO TID 07/29/19 [History] Omeprazole 20 mg PO DAILY 07/29/19 [History] Simvastatin 40 mg PO DAILY 07/29/19 [History] Apixaban [Eliquis] 2.5 mg PO BID #60 tab 09/11/19 [Rx] Docusate [Colace] 100 mg PO DAILY #30 capsule 09/11/19 [Rx] HYDROcodone/APAP 7.5-325MG [[place] 7.5] 1 - 2 each PO Q6HR PRN #56 tab 09/11/19 [Rx] traMADol HCl [Ultram] 50 mg PO Q6H PRN #28 tab 09/11/19 [Rx] Follow up Appointment(s)/Referral(s): Gus Moore DO [Doctor of Osteopathic Medicine] - 10/02/19 3:50 pm [facility], [NON-STAFF] - As Needed Mariah Alanis MD [Primary Care Provider] - 09/19/19 4:00 pm Activity/Diet/Wound Care/Special Instructions: Orthopedic Discharge Instructions: 1. Wound care and infection precautions, keep incision dry and covered while showering, no lotions, creams, moisturizers. No soaking, pools, hot tubs. Do not scrub over incision. 2. Weight-bear as tolerated with walker / cane until follow-up. 3. Ice and elevate when necessary. Do not exceed 20 minutes per hour with ice pack. 4. Utilize compression sleeve until seen at first follow up appointment. 5. Pain meds and anticoagulants per prescription. 6. Pain medication has potential to cause constipation. Increase oral fluid and fiber intake. Contact primary care provider if you have not had a bowel movement within 48 hours after discharge. 7. No anti-inflammatory medication until discussed at first post operative visit, this including Motrin, Aleve, Mobic, Diclofenac. 8. Follow up in office at 2 weeks postop with Roel Berger PA-C 9. Follow up with your primary care doctor 7-10 days after discharge. 10. Contact [facility] with any questions, . Discharge Disposition: HOME WITH HOME HEALTH SERVICES
--- NOTE | 2019-09-11 11:49 | P.PN ---
Subjective Progress Note Date: 09/11/19 pain more controllable intolerable sitting up in a chair, compliant with CPM. ambulated well with therapy likely discharge later today. postop day #2 status post right knee arthroplasty Objective - Vital Signs Vital signs: Vital Signs Temp 98.2 F 09/11/19 07:00 Pulse 101 H 09/11/19 07:00 Resp 12 09/11/19 08:10 BP 113/71 09/11/19 07:00 Pulse Ox 94 L 09/11/19 07:00 Intake & Output 09/10/19 09/11/19 09/11/19 18:59 06:59 18:59 Other: Voiding Method Toilet Toilet # Voids 2 - Exam Constitutional: No acute distress, conversant, pleasant Eyes: Anicteric sclerae, moist conjunctiva, no lid-lag, PERRLA ENMT: NC/AT,Oropharynx clear, no erythema, exudates Neck:Supple, FROM, no masses, or JVD, No carotid bruits; No thyromegaly Lungs: Clear to auscultation, Clear to percussion, Normal respiratory effort, no accessory muscle use Cardiovascular: Heart regular in rate and rhythm, No murmurs, gallops, or rubs no peripheral edema Abdominal: Soft Nontender, nom distended, no guarding, no rebound or rigidity, Normoactive bowel sounds No hepatomegaly, No splenomegaly, No palpable mass No abdominal wall hernia noted Skin: Normal temperature, tone, texture, turgor, No induration No subcutaneous nodules, No rash, lesions, No ulcers, incision clean dry and intact with minimal soft tissue swelling surrounding incision site Extremities:EHL FHL plantar and dorsiflexion intact, symmetrical Radial pulses intact and symmetrical Normal gait and station, No calf tenderness Psychiatric: Alert and oriented to person, place and time, Appropriate affect I ntact judgement Neuro: Muscles Strength 5/5 in all 4 extremities, Sensation to light touch gross ly present throughout, Cranial nerves II-XII grossly intact. No focal sensory deficits - Labs CBC & Chem 7: 09/10/19 06:59 Assessment and Plan Assessment: GERD * continue PPI therapy Dyslipidemia * continue statin therapy Morbid obesity Status post knee arthroplasty * Patient having difficulty with pain today worked well with physical therapy * defer to primary analgesic therapy * likely discharge home today Disposition * Patient medically cleared for discharge
== END 2019-09-11 13:12 | disposition home health service (06) | DRG 470 ==
LOC: OR 05:57 → 4SSUR 09:35 → OR 23:41 → OBSVTOIN 09-11 08:25
PROVIDERS: ADMIT Orthopaedic Surgery; ATTEND Orthopaedic Surgery
PROC: 0SRC0J9 Replacement of Right Knee Joint with Synthetic Substitute, Cemented, Open Approach (ICD-10-PCS; principal; 2019-09-09 07:30)
DX: M17.11 Unilateral primary osteoarthritis, right knee (principal); E66.01 Morbid (severe) obesity due to excess calories; Z68.39 Body mass index [BMI] 39.0-39.9, adult; E78.5 Hyperlipidemia, unspecified; K21.9 Gastro-esophageal reflux disease without esophagitis; Z79.899 Other long term (current) drug therapy; Z80.8 Family history of malignant neoplasm of other organs or systems; Z86.711 Personal history of pulmonary embolism; Z86.718 Personal history of other venous thrombosis and embolism; Z90.710 Acquired absence of both cervix and uterus; Z88.1 Allergy status to other antibiotic agents; Z88.5 Allergy status to narcotic agent; Z88.8 Allergy status to other drugs, medicaments and biological substances; Z79.1 Long term (current) use of non-steroidal anti-inflammatories (NSAID)
CPT/HCPCS: 64448; 76942; 85025; 88300

== ENCOUNTER → 2019-10-16 | Outpatient (CLI) | payer MEDICAID ==
--- NOTE | 2019-10-16 13:05 | US ---
EXAMINATION TYPE: US venous doppler duplex LE RT DATE OF EXAM: 10/16/2019 12:27 PM COMPARISON: NONE CLINICAL HISTORY: M79.661 PAIN IN RT LOWER LIMB,R22.41 SWELLING RT LOWER LIMB. Right total knee repla cement 5 weeks ago, pain and edema right calf SIDE PERFORMED: right TECHNIQUE: The lower extremity deep venous system is examined utilizing real time linear array sonog dameon with graded compression, doppler sonography and color-flow sonography. VESSELS IMAGED: External Iliac Vein (EIV) Common Femoral Vein Deep Femoral Vein Greater Saphenous Vein * Femoral Vein Popliteal Vein Small Saphenous Vein * Proximal Calf Veins (* superficial vessels) Right Leg: No evidence of DVT as visualized IMPRESSION: 1. No diagnostic evidence of DVT as visualized.
== END | disposition home or self-care (01) ==
LOC: RADUSWWP 12:07
PROVIDERS: ATTEND Orthopaedic Surgery
DX: R22.41 Localized swelling, mass and lump, right lower limb (principal); M79.661 Pain in right lower leg; Z88.1 Allergy status to other antibiotic agents; Z88.5 Allergy status to narcotic agent

== ENCOUNTER → 2022-03-21 | Outpatient (CLI) | payer MEDICARE ==
--- NOTE | 2022-03-22 04:20 | MR ---
EXAMINATION TYPE: MR shoulder RT wo con DATE OF EXAM: 03/21/2022 COMPARISON: None HISTORY: Right Shoulder Pain Multiplanar multiecho imaging of the right shoulder with no contrast. There is moderate sprain at the AC joint with subacromial impingement on the supraspinatus tendon and muscle. There is shoulder joint effusion with fluid anterior to the subscapularis tendon. The supras pinatus tendon show small areas of increased signal without a definite full-thickness tear. There is no retraction. There is some fluid around the biceps tendon. Subscapularis tendon is intact. There is a cleft in the anterior glenoid labrum consistent with a tear. This appears old. Posterior glenoid labrum appears i ntact. There is no evidence of a fracture. No focal bone destruction. Humeral head is intact. IMPRESSION: There is moderate spurring at the AC joint with significant subacromial impingement. Mild shoulder dodie int effusion. Small intrasubstance tears of the supraspinatus tendon without a definite full-thicknes s tear. There is probably a tear of the anterior glenoid labrum.
== END | disposition home or self-care (01) ==
LOC: RADMRIMAIN 12:57
PROVIDERS: ATTEND Orthopaedic Surgery
DX: M19.011 Primary osteoarthritis, right shoulder (principal)

== ENCOUNTER → 2022-07-08 | Outpatient (CLI) | payer MEDICARE ==
--- NOTE | 2022-07-11 10:55 | MM ---
Reason for Exam: Screening (asymptomatic). Last mammogram was performed 4 year(s) and 7 month(s) ago. Patient History: Menarche at age 12. First Full-Term at age 18. Left ovary removed at age 42. Right ovary removed at age 42. Hysterectomy at age 42. Postmenopausal. Paternal grandmother had breast cancer. Risk Values: Leida 5 year model risk: 1.2%. NCI Lifetime model risk: 4.4%. Prior Study Comparison: 05/14/2012 Bilateral Screening Mammogram, [facility]. 12/26/2014 Bilateral Screening Mammogram, [facility]. 12/15/2017 Bilateral Screening Mammogram, [facility]. Tissue Density: The breast tissue is heterogeneously dense. This may lower the sensitivity of mammography. Findings: Analyzed By CAD. There are scattered and loosely grouped benign-appearing small round calcifications bilaterally redemonstrated. Benign-appearing bilateral axillary lymph nodes are redemonstrated. There is no suspicious new group of microcalcifications or new suspicious mass in either breast. Overall Assessment: Benign, BI-RAD 2 Management: Screening Mammogram of both breasts in 1 year. A clinical breast exam by your physician is recommended on an annual basis and results should be correlated with mammographic findings. Electronically signed and approved by: Dyllan Pulliam M.D.
== END | disposition home or self-care (01) ==
LOC: RADMAMWWP 15:57
PROVIDERS: ATTEND Internal Medicine
DX: Z12.31 Encounter for screening mammogram for malignant neoplasm of breast (principal); Z78.0 Asymptomatic menopausal state; Z80.3 Family history of malignant neoplasm of breast
CPT/HCPCS: 77063; 77067

== ENCOUNTER → 2025-01-30 | Outpatient (CLI) | payer MEDICARE ==
--- NOTE | 2025-01-30 15:11 | MM ---
Reason for Exam: Screening (asymptomatic). Last mammogram was performed 2 year(s) and 7 month(s) ago. Patient History: Menarche at age 12. First Full-Term at age 18. Left ovary removed at age 42. Right ovary removed at age 42. Hysterectomy at age 42. Postmenopausal. Paternal grandmother had breast cancer. Risk Values: Leida 5 year model risk: 1.2%. NCI Lifetime model risk: 3.9%. Prior Study Comparison: 12/26/2014 Bilateral Screening Mammogram, [facility]. 12/15/2017 Bilateral Screening Mammogram, [facility]. 07/08/2022 Bilateral MG 3D screening mammo w/cad, [facility]. Tissue Density: There are scattered areas of fibroglandular density. Findings: Analyzed By CAD. Right breast: There is no suspicious group of microcalcifications or new suspicious mass. Left breast: There is no suspicious group of microcalcifications or new suspicious mass. Overall Assessment: Negative, BI-RAD 1 Management: Screening Mammogram of both breasts in [address] [facility] will attempt to contact patient to return for supplemental views and ultrasound if indicated. Patient should continue monthly self-breast exams. A clinical breast exam by your physician is recommended on an annual basis. This exam should not preclude additional follow-up of suspicious palpable abnormalities. Note on Leida scores and lifetime risk: 1. A Leida score greater than 3% is considered moderate risk. If this is the case, consider specialist referral to assess eligibility for a risk reducing agent. 2. If overall lifetime risk for the development of breast cancer is 20% or higher, the patient may qualify for future screening with alternating mammogram and breast MRI. [facility], , 01/30/2025 3:09 PM. Electronically signed and approved by: Bob Herbert DO
== END | disposition home or self-care (01) ==
LOC: RADMAMWWP 14:22
PROVIDERS: ATTEND Internal Medicine
DX: Z12.31 Encounter for screening mammogram for malignant neoplasm of breast (principal); R92.323 Mammographic fibroglandular density, bilateral breasts; Z78.0 Asymptomatic menopausal state; Z80.3 Family history of malignant neoplasm of breast
CPT/HCPCS: 77063; 77067